=== PATIENT | female | born 2000 | race African-American/Black ===

== ENCOUNTER 2019-05-28 00:53 | Emergency (ER) | payer BC ==
[~2019-05-28] VITALS: Ht 162.6 cm; Wt 63.5 kg
[~2019-05-28 00:53] MED LIST: DOXYCYCLINE 10100 M1 PO
[2019-05-28 01:03] VITALS: BP 158/98
--- NOTE | 2019-05-28 11:51 | EKG ---
[place] [address] ELECTROCARDIOGRAM REPORT Name: TOBIN OKEEFE Room: [facility]#: [id number] Admission: 05/28/19 Attend Phys: Discharge: 05/28/19 Date of : 89 Report #: [id number] THIS REPORT FOR: //name// 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
== END 2019-05-28 01:20 | disposition home or self-care (01) ==
LOC: M.ERS 00:53
DX: F41.0 Panic disorder [episodic paroxysmal anxiety] (principal)